=== PATIENT | female | born 1975 | race African-American/Black ===

== ENCOUNTER 2017-02-08 11:14 | Emergency (ER) | payer MEDICARE, MEDICAID ==
[~2017-02-08] VITALS: Ht 171.4 cm; Wt 83.9 kg
[2017-02-08 11:27] VITALS: BP 149/65
[2017-02-08] MEDS ORDERED: CYCL10TA2 PO (11:42)
[2017-02-08] MEDS ORDERED: NAPR500T PO (11:42)
--- NOTE | 2017-02-08 11:42 | PHYS DOC ---
Past Medical History Past Medical History: Fibromyalgia Additional Past Medical Histor: carpal tunnel syndrome, degenerative joint disease Past Surgical History: No Surgical History Smoking: Cigarettes Alcohol Use: Occasionally Drug Use: None Adult General Chief Complaint Chief Complaint: HIP PAIN HPI HPI Patient is a 41 year old female presents to the emergency department with complaints of right hip discomfort for 5-6 months. She states she has not followed up with her primary care provider but did attempt to make a phone call the office yesterday. Patient reports that she was here at the hospital with her daughter and decided to check into the emergency Department for evaluation of her chronic right hip pain. She reports no traumatic injury. Review of Systems Review of Systems Constitutional: Denies fever or chills [] Eyes: Denies change in visual acuity, redness, or eye pain [] HENT: Denies nasal congestion or sore throat [] Respiratory: Denies cough or shortness of breath [] Cardiovascular: No additional information not addressed in HPI [] GI: Denies abdominal pain, nausea, vomiting, bloody stools or diarrhea [] : Denies dysuria or hematuria [] Musculoskeletal: Right hip pain Integument: Denies rash or skin lesions [] Neurologic: Denies headache, focal weakness or sensory changes [] Endocrine: Denies polyuria or polydipsia [] All other systems were reviewed and found to be within normal limits, except as documented in this note. Allergies Allergies Allergies Coded Allergies Type Severity Reaction Last Updated Verified carisoprodol Allergy Intermediate 02/08/17 Yes nabumetone Allergy Intermediate 02/08/17 Yes sulfamethoxazole Allergy Intermediate 02/08/17 Yes trimethoprim Allergy Intermediate 02/08/17 Yes Physical Exam Physical Exam Constitutional: Well developed, well nourished, no acute distress, non-toxic appearance. [] HENT: Normocephalic, atraumatic, bilateral external ears normal, oropharynx moist, no oral exudates, nose normal. [] Eyes: PERRLA, EOMI, conjunctiva normal, no discharge. [] Neck: Normal range of motion, no tenderness, supple, no stridor. [] Cardiovascular:Heart rate regular rhythm, no murmur [] Lungs & Thorax: Bilateral breath sounds clear to auscultation [] Abdomen: Bowel sounds normal, soft, no tenderness, no masses, no pulsatile masses. [] Skin: Warm, dry, no erythema, no rash. [] Back: Mild tenderness in the right lumbar area, paraspinous, extending to the right hip. Negative straight raise leg test. Muscle strength is 5 over 5. Neurovascular intact distally. Extremities: Mild tenderness right hip, no cyanosis, no clubbing, ROM intact without pain, no edema. [] Neurologic: Alert and oriented X 3, normal motor function, normal sensory function, no focal deficits noted. [] Psychologic: Affect normal, judgement normal, mood normal. [] EKG EKG [] Radiology/Procedures Radiology/Procedures [] Course & Med Decision Making Course & Med Decision Making Pertinent Labs and Imaging studies reviewed. (See chart for details) [] Dragon Disclaimer Dragon Disclaimer This electronic medical record was generated, in whole or in part, using a voice recognition dictation system. Departure Departure Impression: Primary Impression: Chronic pain of right hip Disposition: 01 HOME, SELF-CARE Condition: STABLE Patient Instructions: Hip Pain Additional Instructions: Follow-up with your primary care provider for further evaluation of your chronic right hip pain Scripts Naproxen (NAPROSYN) 500 Mg Tablet 500 MG PO BID, #20 TAB Prov: KOBY HILLS APRN 02/08/17 Cyclobenzaprine Hcl (CYCLOBENZAPRINE HCL) 10 Mg Tablet 10 MG PO TID, #30 TAB Prov: KOBY HILLS APRN 02/08/17 KOBY HILLS APRN Feb 08, 2017 11:42
== END 2017-02-08 12:06 | disposition home or self-care (01) ==
LOC: ER 11:14
DX: G89.29 Other chronic pain (principal); M25.551 Pain in right hip; M79.7 Fibromyalgia; M19.90 Unspecified osteoarthritis, unspecified site; F17.210 Nicotine dependence, cigarettes, uncomplicated; Z88.2 Allergy status to sulfonamides; Z88.8 Allergy status to other drugs, medicaments and biological substances
CPT/HCPCS: 99283